=== PATIENT | female | born 1990 | race Caucasian/White ===

== ENCOUNTER 2018-06-24 16:12 | Emergency (ER) | payer OTHER ==
[~2018-06-24] VITALS: Ht 175.3 cm; Wt 73.6 kg
--- NOTE | 2018-06-24 16:33 | NUR ---
PT PRESENTED TO ED WITH RIGHT LEG PAIN THAT RADIATES FROM HER COCCYX TO HER RIGHT LEG AND RIGHT VAGINAL AREA. PT STATES THAT SHE STARTED HER PERIOD TODAY AND WHEN SHE GETS THIS RIGHT LEG PAIN, SHE HAD TWO ECTOPIC PREGNANCIES. PT PLACED IN ROOM AND PLACED ON BP AND CONT. PULSE OXIMETER. ASSESSMENT COMPLETED.
[2018-06-24] MEDS ORDERED: SODIUM CHLORIDE FLUSH 10ML SYR IVF ONE (17:00)
[2018-06-24 17:12] LABS: BASOPHILS # (AUTO) 0.04 x10^3/uL (0-0.1); BASOPHILS % (AUTO) 0 % (0-1); EOSINOPHILS # (AUTO) 0.04 x10^3/uL (0-0.4); EOSINOPHILS % (AUTO) 0 % (1-7); LYMPHOCYTES # (AUTO) 2.14 x10^3/uL (1-3.4); LYMPHOCYTES % (AUTO) 22 % (22-44); MD NO; MEAN CORPUSCULAR HEMOGLOBIN 31.2 pg (27.0-34.8); MEAN CORPUSCULAR HGB CONC 34.3 g/dL (32.4-35.8); MEAN PLATELET VOLUME 8.1 fL (7.4-10.4); MONOCYTES # (AUTO) 0.93 x10^3/uL (0.2-0.8); MONOCYTES % (AUTO) 9 % (2-9); NEUTROPHILS # (AUTO) 6.67 x10^3/uL (1.8-6.8); NEUTROPHILS % (AUTO) 68 % (42-75); PLATELET COUNT 235 x10^3/uL (130-400); RED BLOOD COUNT 4.55 x10^6/uL (3.82-5.3)
[2018-06-24 17:21] LABS: ALANINE AMINOTRANSFERASE 11 U/L (12-78); ALBUMIN 3.7 g/dL (3.4-5.0); ANION GAP 6 mmol/L (5-15); CALCIUM 8.4 mg/dL (8.5-10.1); CHLORIDE 111 mmol/L (98-107); CREATININE 0.71 mg/dL (0.55-1.02)
[2018-06-24 17:25] LABS: ALKALINE PHOSPHATASE 53 U/L (45-117); BILIRUBIN,TOTAL 0.6 mg/dL (0.2-1.0)
--- NOTE | 2018-06-24 17:31 | NUR ---
PT TAKEN TO US
--- NOTE | 2018-06-24 18:14 | NUR ---
PT BACK FROM US AND URINE SENT TO LAB
[2018-06-24 19:05] LABS: MICROSCOPIC AUTO
[2018-06-24 19:08] LABS: CULTURE INDICATED? YES
--- NOTE | 2018-06-24 19:08 | NUR ---
report given to felisha zarate.
[2018-06-24 19:14] VITALS: BP 114/54
--- NOTE | 2018-06-24 19:16 | NUR ---
PT RESTING ON GURNEY, MONITORS IN PLACE, SIDERAIL SUP X2, CALL LIGHT WITHIN REACH. AWAITING URINE RESULT
== END 2018-06-24 20:02 | disposition home or self-care (01) ==
LOC: ED 18:59
DX: N83.291 Other ovarian cyst, right side (principal); F17.200 Nicotine dependence, unspecified, uncomplicated
CPT/HCPCS: 36415; 76830; 80053; 81001; 84703; 85025; 87086; 99284

== ENCOUNTER 2018-09-28 14:40 | Emergency (ER) | payer OTHER ==
[~2018-09-28] VITALS: Ht 175.3 cm; Wt 70.5 kg
--- NOTE | 2018-09-28 14:40 | NUR ---
BIBA from work c/o RLQ abd pain, nausea, weakness since 1330 today with seiz x1 REVENUE LIAISON; hx "stress-induced seiz, Rt ovarian cyst, tubal ligation; PIV, 5mg versed, 50mcg fentanyl REVENUE LIAISON per EMS; pt changed into gown, responds approp to staff, NAD, comfort measures provided, SO at BS, call light within reach; cardiac, NIBP & SpO2 monitors in place.
[2018-09-28] MEDS ORDERED: KETOROLAC 30 MG/1 ML IM ONE (15:00)
--- NOTE | 2018-09-28 15:10 | NUR ---
pt to US
[2018-09-28 15:28] LABS: MICROSCOPIC NOT IND
[2018-09-28] MEDS ORDERED: KETOROLAC 60 MG/2 ML ONE (15:30)
[2018-09-28 15:31] LABS: CULTURE INDICATED? NO
[2018-09-28 15:35] LABS: BASOPHILS # (AUTO) 0.01 x10^3/uL (0-0.1); BASOPHILS % (AUTO) 0 % (0-1); EOSINOPHILS # (AUTO) 0.02 x10^3/uL (0-0.4); EOSINOPHILS % (AUTO) 0 % (1-7); LYMPHOCYTES # (AUTO) 1.63 x10^3/uL (1-3.4); LYMPHOCYTES % (AUTO) 21 % (22-44); MD NO; MEAN CORPUSCULAR HEMOGLOBIN 30.7 pg (27.0-34.8); MEAN CORPUSCULAR HGB CONC 33.2 g/dL (32.4-35.8); MEAN CORPUSCULAR VOLUME 92.7 fL (80-100); MEAN PLATELET VOLUME 8.1 fL (7.4-10.4); MONOCYTES # (AUTO) 0.54 x10^3/uL (0.2-0.8); MONOCYTES % (AUTO) 7 % (2-9); NEUTROPHILS % (AUTO) 71 % (42-75); PLATELET COUNT 210 x10^3/uL (130-400); RED BLOOD COUNT 4.49 x10^6/uL (3.82-5.3); RED CELL DISTRIBUTION WIDTH 12.7 % (9.6-15.2)
[2018-09-28 15:46] LABS: ALANINE AMINOTRANSFERASE 15 U/L (12-78); ALBUMIN 3.7 g/dL (3.4-5.0); ANION GAP 7 mmol/L (5-15); CALCIUM 8.5 mg/dL (8.5-10.1); CHLORIDE 111 mmol/L (98-107); CREATININE 0.73 mg/dL (0.55-1.02)
[2018-09-28 15:51] LABS: ALKALINE PHOSPHATASE 46 U/L (45-117); BILIRUBIN,TOTAL 0.6 mg/dL (0.2-1.0); TOTAL PROTEIN 6.9 g/dL (6.4-8.2)
--- NOTE | 2018-09-28 16:10 | NUR ---
pt returned from US, upright on gurney awake & comfortable, responds approp to staff, NAD, comfort measures provided, SO at BS, call light within reach;
--- NOTE | 2018-09-28 16:24 | NUR ---
ERP aware of bradycardia Addendum: 09/28/18 at 1625 by JOSE RAMON ERP aware of bradycardia, pt remains asymptomatic & states "that's normal for me sometimes".
--- NOTE | 2018-09-28 16:54 | NUR ---
pt remains upright on gurney awake & comfortable, responds approp to staff, NAD, comfort measures provided, SO at BS, call light within reach; awaiting CT.
[2018-09-28 18:01] VITALS: BP 107/64
--- NOTE | 2018-09-28 18:02 | NUR ---
pt upright on gurney awake & comfortable, responds approp to staff, NAD, comfort measures provided, SO at BS, call light within reach;
--- NOTE | 2018-09-28 18:52 | NUR ---
Patient given discharge instructions and they have confirmed that they understand the instructions. Patient ambulatory with steady gait.
== END 2018-09-28 18:53 | disposition home or self-care (01) ==
LOC: ED 18:30
DX: R10.31 Right lower quadrant pain (principal)
CPT/HCPCS: 36415; 74176; 76830; 80053; 81003; 84703; 85025; 96372; 99284; J1885